=== PATIENT | female | born 1960 | race Caucasian/White ===

== ENCOUNTER 2020-02-04 17:51 | Observation (INO) ==
[2020-02-04 19:16] LABS: Bilirubin,Urine Negative (Negative); Blood, Urine Negative (Negative); Glucose,Urine (UA) Negative (Negative); Ketones,Urine Negative (Negative); Mucus,Urine Many /LPF (Occasional); Nitrite,Urine Negative (Negative); Protein,Urine Negative; Urine Appearance CLOUDY (Clear); Urine Color Amber (Yellow); Urine Specific Gravity 1.016 (1.001-1.035); WBC,Urine 36 /HPF (0-6)
[2020-02-04] MEDS ORDERED: cefTRIAXone 1,000 MG in SODIUM CHLORIDE 0.9% 100 ML IV STA (19:27)
[2020-02-04 19:33] LABS: Basophils # 0.1 10*3/uL (0.0-0.2); Basophils % 1.2 % (0.0-0.8); Eosinophils # 0.4 10*3/uL (0.0-0.87); Eosinophils % 4.3 % (0.00-10.9); Hematocrit 36.4 VOL% (35.7-47.0); Hemoglobin 11.1 GM/DL (12.0-16.0); Immature Granulocytes % 0.3 %; Immature Granulocytes Absolute 0.03 #; Lymphocytes # 2.1 10*3/uL (1.4-4.0); Lymphocytes % 23.7 % (21.3-54.2); Mean Corpuscular HGB Conc 30.5 GM/DL (32-36); Mean Corpuscular Volume 87.5 FL (87-102); Mean Platelet Volume 9.4 FL (9.6-12.0); Neutrophils % 63.5 % (38.7-73.9); Platelet Count 477 T/CUMM (130-400); Red Blood Count 4.16 MC/CUMM (3.8-5.5); Red Cell Distribution Width 13.1 % (9.3-17.3); White Blood Count 8.7 T/CUMM (4-12)
[2020-02-04 19:44] LABS: PT Patient Result 10.9 SECS (9.8-11.9)
[2020-02-04 20:04] LABS: Albumin 3.1 G/DL (3.4-5.0); Bilirubin,Total 0.7 MG/DL (0.2-1.0); Osmolality,Calculated 281.3 MOS/KG (273-304); Total Protein 7.2 G/DL (6.4-8.3)
[2020-02-04] MEDS ORDERED: MORPHINE 4 MG/1 ML VIAL IV STA (20:41)
[2020-02-04] MEDS ORDERED: ONDANSETRON 4 MG/2 ML VIAL IV STA (20:41)
[2020-02-04] MEDS ORDERED: ZALEPLON 5 MG CAPSULE PO PRN (20:49)
[2020-02-04] MEDS ORDERED: NICOTINE 21 MG/24 HR PATCH TRANSDERM PRN (20:49)
[2020-02-04] MEDS ORDERED: hydrALAZINE 20 MG/1 ML VIAL IV PRN (20:49)
[2020-02-04] MEDS ORDERED: ONDANSETRON 4 MG/2 ML VIAL IV PRN (20:49)
[2020-02-04] MEDS ORDERED: GLUCAGON 1 MG VIAL IM PRN (20:49)
[2020-02-04] MEDS ORDERED: DEXTROSE 50% 25 GM/50 ML VIAL IV PRN (20:49)
[2020-02-04] MEDS ORDERED: diphenhydrAMINE CAP 25 MG CAPSULE PO PRN (20:49)
[2020-02-04] MEDS: SODIUM CHLORIDE 0.9% 1,000 ML IV SCH (22:33)
[2020-02-05] MEDS: MORPHINE 4 MG/1 ML VIAL IV PRN ×3 (01:02→21:22)
[2020-02-05] MEDS ORDERED: LORazepam 2 MG/1 ML VIAL IV ONE (03:04)
[2020-02-05] MEDS: ENOXAPARIN 40 MG/0.4 ML SYRINGE SUBCUT SCH (12:30)
[2020-02-05] MEDS: SODIUM CHLORIDE 0.9% 1,000 ML IV SCH (12:32)
[2020-02-05] MEDS ORDERED: TUBERCULIN SKIN TEST 0.1 ML SYRINGE INTRADERM ONE (15:28)
[2020-02-05] MEDS: ACETAMINOPHEN 325 MG TABLET PO PRN (17:56)
[2020-02-05] MEDS: cefTRIAXone 1,000 MG in SYRINGE 1 EACH IV SCH (21:22)
[2020-02-06] MEDS: SODIUM CHLORIDE 0.9% 1,000 ML IV SCH ×2 (00:08→12:58)
[2020-02-06 07:03] LABS: Basophils % 0.6 % (0.0-0.8); Eosinophils # 0.3 10*3/uL (0.0-0.87); Hemoglobin 11.2 GM/DL (12.0-16.0); Immature Granulocytes % 0.4 %; Immature Granulocytes Absolute 0.03 #; Lymphocytes # 1.7 10*3/uL (1.4-4.0); Mean Corpuscular Volume 84.7 FL (87-102); Mean Platelet Volume 9.1 FL (9.6-12.0); Monocytes % 7.4 % (1.7-12.7); Neutrophils % 62.6 % (38.7-73.9); Platelet Count 364 T/CUMM (130-400); Red Blood Count 4.13 MC/CUMM (3.8-5.5); Red Cell Distribution Width 13.2 % (9.3-17.3); White Blood Count 6.9 T/CUMM (4-12)
[2020-02-06 07:28] LABS: Albumin 2.8 G/DL (3.4-5.0); Bilirubin,Total 0.5 MG/DL (0.2-1.0); Calcium 8.9 MG/DL (8.5-10.1); Osmolality,Calculated 279.3 MOS/KG (273-304); Total Protein 6.6 G/DL (6.4-8.3)
[2020-02-06] MEDS: ENOXAPARIN 40 MG/0.4 ML SYRINGE SUBCUT SCH (09:32)
[2020-02-06] MEDS ORDERED: ASPIRIN EC 81 MG TABLET PO SCH (15:30)
[2020-02-06] MEDS: cefTRIAXone 1,000 MG in SYRINGE 1 EACH IV SCH (20:46)
[2020-02-06] MEDS: ASPIRIN EC 81 MG TABLET PO SCH (20:46)
[2020-02-06] MEDS: ACETAMINOPHEN 325 MG TABLET PO PRN (22:50)
[2020-02-07] MEDS: SODIUM CHLORIDE 0.9% 1,000 ML IV SCH ×2 (01:30→16:10)
[2020-02-07] MEDS: amLODIPine 10 MG TABLET PO SCH (09:13)
[2020-02-07] MEDS: BACLOFEN 10 MG TABLET PO SCH ×3 (09:13→20:47)
[2020-02-07] MEDS: METOPROLOL SUCCINATE XL 25 MG TABLET PO SCH (09:13)
[2020-02-07] MEDS: ASPIRIN EC 81 MG TABLET PO SCH (09:13)
[2020-02-07] MEDS: CEFUROXIME 500 MG TABLET PO SCH ×2 (09:13→20:47)
[2020-02-07] MEDS: ENOXAPARIN 40 MG/0.4 ML SYRINGE SUBCUT SCH (09:13)
[2020-02-07 11:31] LABS: Basophils % 0.4 % (0.0-0.8); Eosinophils # 0.3 10*3/uL (0.0-0.87); Eosinophils % 2.7 % (0.00-10.9); Hematocrit 37.1 VOL% (35.7-47.0); Hemoglobin 11.8 GM/DL (12.0-16.0); Immature Granulocytes % 0.5 %; Immature Granulocytes Absolute 0.05 #; Lymphocytes % 10.8 % (21.3-54.2); Mean Corpuscular HGB Conc 31.8 GM/DL (32-36); Mean Corpuscular Volume 84.3 FL (87-102); Mean Platelet Volume 9.3 FL (9.6-12.0); Monocytes % 6.7 % (1.7-12.7); Neutrophils % 78.9 % (38.7-73.9); Platelet Count 389 T/CUMM (130-400); Red Cell Distribution Width 13.1 % (9.3-17.3); White Blood Count 9.1 T/CUMM (4-12)
[2020-02-07 11:56] LABS: Albumin 3.2 G/DL (3.4-5.0); Bilirubin,Total 0.4 MG/DL (0.2-1.0); Calcium 9.2 MG/DL (8.5-10.1); Osmolality,Calculated 276.4 MOS/KG (273-304); Total Protein 7.2 G/DL (6.4-8.3)
[2020-02-07] MEDS ORDERED: ESCITALOPRAM 10 MG TABLET PO SCH (21:00)
[2020-02-07] MEDS ORDERED: ATORVASTATIN 40 MG TABLET PO SCH (21:00)
[2020-02-08] MEDS: SODIUM CHLORIDE 0.9% 1,000 ML IV SCH ×2 (05:35→14:52)
[2020-02-08 06:14] LABS: Basophils # 0.1 10*3/uL (0.0-0.2); Basophils % 0.7 % (0.0-0.8); Eosinophils # 0.3 10*3/uL (0.0-0.87); Eosinophils % 3.7 % (0.00-10.9); Hematocrit 38.7 VOL% (35.7-47.0); Hemoglobin 11.8 GM/DL (12.0-16.0); Immature Granulocytes % 0.2 %; Immature Granulocytes Absolute 0.02 #; Lymphocytes # 1.3 10*3/uL (1.4-4.0); Lymphocytes % 16.6 % (21.3-54.2); Mean Corpuscular HGB Conc 30.5 GM/DL (32-36); Mean Corpuscular Volume 86.8 FL (87-102); Mean Platelet Volume 11.3 FL (9.6-12.0); Monocytes % 7.1 % (1.7-12.7); Neutrophils % 71.7 % (38.7-73.9); Red Blood Count 4.46 MC/CUMM (3.8-5.5); Red Cell Distribution Width 13.2 % (9.3-17.3)
[2020-02-08 06:23] LABS: Platelet Count 294 T/CUMM (130-400)
[2020-02-08 06:33] LABS: Albumin 3.2 G/DL (3.4-5.0); Bilirubin,Total 1.3 MG/DL (0.2-1.0); Calcium 9.1 MG/DL (8.5-10.1); Osmolality,Calculated 277.4 MOS/KG (273-304); Total Protein 7.3 G/DL (6.4-8.3)
[2020-02-08] MEDS: METOPROLOL SUCCINATE XL 25 MG TABLET PO SCH (08:18)
[2020-02-08] MEDS: CEFUROXIME 500 MG TABLET PO SCH (08:18)
[2020-02-08] MEDS: ASPIRIN EC 81 MG TABLET PO SCH (08:18)
[2020-02-08] MEDS: ENOXAPARIN 40 MG/0.4 ML SYRINGE SUBCUT SCH (08:18)
[2020-02-08] MEDS: BACLOFEN 10 MG TABLET PO SCH (08:18)
[2020-02-08] MEDS: amLODIPine 10 MG TABLET PO SCH (08:18)
[2020-02-08] MEDS ORDERED: TUBERCULIN SKIN TEST 0.1 ML SYRINGE INTRADERM ONE (10:18)
[2020-02-08 11:58] VITALS: BP 147/72
== END 2020-02-08 13:35 | disposition home or self-care (01) ==
LOC: EDUNIT# → EDBD → N.ED 17:51 → N.EDINP 17:51 → SUATTDRO 20:49 → SUPCPDRO 20:49 → N.TELEN 02-05 12:05
PROVIDERS: ADMIT Hospitalist; ATTEND Emergency Medicine

== ENCOUNTER 2020-07-28 15:56 | Observation (INO) ==
[2020-07-28] MEDS ORDERED: SODIUM CHLORIDE 0.9% 1,000 ML IV STA (16:32)
[2020-07-28 17:07] LABS: Bilirubin,Urine Negative (Negative); Blood, Urine Negative (Negative); Glucose,Urine (UA) Negative (Negative); Ketones,Urine Negative (Negative); Mucus,Urine Occasional /LPF (Occasional); Nitrite,Urine Negative (Negative); Protein,Urine Negative; RBC,Urine <1 /HPF (0-4); Squamous Epithelial Cell,Urine Occasional /HPF (0-10); Urine Appearance CLEAR (Clear); Urine Color Yellow (Yellow); Urine Specific Gravity 1.012 (1.001-1.035); Urine Urobilinogen < 2.0 EU/DL (0.2-1.0); WBC,Urine <1 /HPF (0-6)
[2020-07-28 17:56] LABS: Basophils # 0.1 10*3/uL (0.0-0.2); Basophils % 0.5 % (0.0-0.8); Eosinophils # 0.2 10*3/uL (0.0-0.87); Eosinophils % 1.5 % (0.00-10.9); Hematocrit 49.2 VOL% (35.7-47.0); Hemoglobin 15.1 GM/DL (12.0-16.0); Immature Granulocytes % 0.6 %; Immature Granulocytes Absolute 0.09 #; Lymphocytes # 1.2 10*3/uL (1.4-4.0); Lymphocytes % 7.6 % (21.3-54.2); Mean Corpuscular HGB Conc 30.7 GM/DL (32-36); Mean Corpuscular Volume 84.2 FL (87-102); Mean Platelet Volume 9.7 FL (9.6-12.0); Monocytes % 5.6 % (1.7-12.7); Neutrophils % 84.2 % (38.7-73.9); Platelet Count 417 T/CUMM (130-400); Red Blood Count 5.84 MC/CUMM (3.8-5.5); White Blood Count 15.8 T/CUMM (4-12)
[2020-07-28 18:29] LABS: Partial Thromboplastin Time 26.3 SECS (23.9-33.8)
[2020-07-28 18:36] LABS: Alanine Aminotransferase 18 U/L (13-56); Albumin 3.5 G/DL (3.4-5.0); Alkaline Phosphatase 150 U/L (45-117); Aspartate Amino Transferase 14 U/L (0-37); Blood Urea Nitrogen 14 MG/DL (7-18); Calcium 9.3 MG/DL (8.5-10.1); Estimated Glom Filtration Rate 111 ML/MIN; Glucose 96 MG/DL (74-106); Osmolality,Calculated 279.4 MOS/KG (273-304); Total Protein 8.4 G/DL (6.4-8.3); Troponin I < 0.015 NG/ML (0.00-0.045)
[2020-07-28 19:21] LABS: Ferritin 33.8 ng/ml (8-252)
[2020-07-28] MEDS ORDERED: cefTRIAXone 1,000 MG in SODIUM CHLORIDE 0.9% 100 ML IV STA (19:55)
[2020-07-28] MEDS ORDERED: GLUCAGON 1 MG VIAL IM PRN (22:23)
[2020-07-28] MEDS ORDERED: DEXTROSE 50% 25 GM/50 ML VIAL IV PRN (22:23)
[2020-07-28] MEDS ORDERED: DOCUSATE SODIUM 100 MG CAPSULE PO PRN (22:28)
[2020-07-28] MEDS ORDERED: ONDANSETRON 4 MG/2 ML VIAL IV PRN (22:28)
[2020-07-28] MEDS ORDERED: ACETAMINOPHEN 325 MG TABLET PO PRN (22:28)
[2020-07-28] MEDS: SODIUM CHLORIDE 0.9% 1,000 ML IV SCH (23:25)
[2020-07-29] MEDS: SODIUM CHLORIDE 0.9% 1,000 ML IV SCH ×2 (07:45→17:37)
[2020-07-29] MEDS: ENOXAPARIN 40 MG/0.4 ML SYRINGE SUBCUT SCH (08:35)
[2020-07-29 08:55] LABS: Basophils # 0.1 10*3/uL (0.0-0.2); Basophils % 0.9 % (0.0-0.8); Eosinophils # 0.3 10*3/uL (0.0-0.87); Eosinophils % 2.7 % (0.00-10.9); Hematocrit 39.9 VOL% (35.7-47.0); Immature Granulocytes % 0.2 %; Immature Granulocytes Absolute 0.02 #; Lymphocytes # 1.8 10*3/uL (1.4-4.0); Mean Corpuscular HGB Conc 31.8 GM/DL (32-36); Mean Corpuscular Volume 81.9 FL (87-102); Mean Platelet Volume 9.6 FL (9.6-12.0); Monocytes % 6.9 % (1.7-12.7); Neutrophils % 69.3 % (38.7-73.9); Platelet Count 375 T/CUMM (130-400); Red Blood Count 4.87 MC/CUMM (3.8-5.5); Red Cell Distribution Width 13.9 % (9.3-17.3)
[2020-07-29 09:01] LABS: Hemoglobin 12.7 GM/DL (12.0-16.0); White Blood Count 9.1 T/CUMM (4-12)
[2020-07-29 09:07] LABS: Calcium 8.6 MG/DL (8.5-10.1); Osmolality,Calculated 279.3 MOS/KG (273-304)
[2020-07-29] MEDS: ATORVASTATIN 40 MG TABLET PO SCH (20:41)
[2020-07-30 07:15] LABS: Basophils # 0.1 10*3/uL (0.0-0.2); Eosinophils # 0.3 10*3/uL (0.0-0.87); Eosinophils % 3.9 % (0.00-10.9); Hematocrit 37.9 VOL% (35.7-47.0); Hemoglobin 12.1 GM/DL (12.0-16.0); Immature Granulocytes % 0.3 %; Immature Granulocytes Absolute 0.02 #; Lymphocytes # 1.7 10*3/uL (1.4-4.0); Lymphocytes % 24.9 % (21.3-54.2); Mean Corpuscular HGB Conc 31.9 GM/DL (32-36); Mean Corpuscular Volume 82.2 FL (87-102); Mean Platelet Volume 11.3 FL (9.6-12.0); Monocytes % 9.6 % (1.7-12.7); NRBC # 0.03 10*3/uL; Neutrophils % 60.3 % (38.7-73.9); Red Blood Count 4.61 MC/CUMM (3.8-5.5); Red Cell Distribution Width 13.9 % (9.3-17.3); White Blood Count 6.9 T/CUMM (4-12)
[2020-07-30 07:17] LABS: Platelet Count 154 T/CUMM (130-400)
[2020-07-30 07:28] LABS: Calcium 8.5 MG/DL (8.5-10.1); Osmolality,Calculated 281.1 MOS/KG (273-304)
[2020-07-30] MEDS: ESCITALOPRAM 10 MG TABLET PO SCH (09:49)
[2020-07-30] MEDS: amLODIPine 10 MG TABLET PO SCH (09:49)
[2020-07-30] MEDS: ASPIRIN EC 81 MG TABLET PO SCH (09:49)
[2020-07-30] MEDS: METOPROLOL SUCCINATE XL 25 MG TABLET PO SCH (09:49)
[2020-07-30] MEDS: ENOXAPARIN 40 MG/0.4 ML SYRINGE SUBCUT SCH (09:49)
[2020-07-30] MEDS: SODIUM CHLORIDE 0.9% 1,000 ML IV SCH (09:49)
[2020-07-30] MEDS: ATORVASTATIN 40 MG TABLET PO SCH (20:41)
[2020-07-31] MEDS: SODIUM CHLORIDE 0.9% 1,000 ML IV SCH (01:59)
[2020-07-31] MEDS ORDERED: NICOTINE 21 MG/24 HR PATCH TRANSDERM PRN (02:20)
[2020-07-31] MEDS: METOPROLOL SUCCINATE XL 25 MG TABLET PO SCH (09:00)
[2020-07-31] MEDS: amLODIPine 10 MG TABLET PO SCH (09:00)
[2020-07-31] MEDS: ASPIRIN EC 81 MG TABLET PO SCH (09:00)
[2020-07-31] MEDS: ESCITALOPRAM 10 MG TABLET PO SCH (09:00)
[2020-07-31] MEDS: ENOXAPARIN 40 MG/0.4 ML SYRINGE SUBCUT SCH (09:01)
[2020-07-31] MEDS: ATORVASTATIN 40 MG TABLET PO SCH (21:45)
[2020-08-01] MEDS: ENOXAPARIN 40 MG/0.4 ML SYRINGE SUBCUT SCH (09:05)
[2020-08-01] MEDS: ASPIRIN EC 81 MG TABLET PO SCH (09:05)
[2020-08-01] MEDS: amLODIPine 10 MG TABLET PO SCH (09:05)
[2020-08-01] MEDS: ESCITALOPRAM 10 MG TABLET PO SCH (09:05)
[2020-08-01] MEDS: METOPROLOL SUCCINATE XL 25 MG TABLET PO SCH (09:05)
[2020-08-01] MEDS: SODIUM CHLORIDE 0.9% 1,000 ML IV SCH ×2 (09:09→09:10)
[2020-08-01 13:29] VITALS: BP 124/60
== END 2020-08-01 14:00 | disposition home health service (06) ==
LOC: EDBD → EDUNIT# → N.ED 15:56 → N.EDINP 15:56 → SUATTDRO 21:27 → N.3E 22:06
PROVIDERS: ADMIT Emergency Medicine; ATTEND Internal Medicine Geriatric Medicine

== ENCOUNTER 2021-06-03 14:01 | Inpatient (IN) ==
[2021-06-03 15:25] LABS: Bacteria,Urine Occasional /HPF (Few); Bilirubin,Urine Negative (Negative); Blood, Urine Negative (Negative); Glucose,Urine (UA) Negative (Negative); Hyaline Casts,Urine 1 /LPF (0-3); Ketones,Urine Negative (Negative); Mucus,Urine Occasional /LPF (Occasional); Nitrite,Urine Positive (Negative); Protein,Urine 30 MG/DL; RBC,Urine 1 /HPF (0-4); Squamous Epithelial Cell,Urine Occasional /HPF (0-10); Urine Appearance CLEAR (Clear); Urine Color Amber (Yellow); Urine Specific Gravity 1.017 (1.001-1.035)
[2021-06-03] MEDS ORDERED: cefTRIAXone 1,000 MG in SODIUM CHLORIDE 0.9% 100 ML IV STA (16:37)
[2021-06-03 16:39] LABS: Albumin 3.5 G/DL (3.4-5.0); Bilirubin,Total 0.4 MG/DL (0.20-1.00); Osmolality,Calculated 274.7 MOS/KG (273-304); Potassium 4.3 MMOL/L (3.5-5.1); Total Protein 8.1 G/DL (6.4-8.2)
[2021-06-03] MEDS ORDERED: cefTRIAXone 1,000 MG VIAL IM STA (16:42)
[2021-06-03] MEDS ORDERED: LIDOCAINE 1% 50 ML VIAL ONE (16:43)
[2021-06-03 16:50] LABS: Basophils # 0.1 10*3/uL (0.0-0.2); Basophils % 0.7 % (0.0-0.8); Eosinophils # 0.1 10*3/uL (0.0-0.87); Eosinophils % 0.5 % (0.00-10.9); Hematocrit 46.6 VOL% (35.7-47.0); Hemoglobin 14.2 GM/DL (12.0-16.0); Immature Granulocytes % 0.5 %; Immature Granulocytes Absolute 0.09 #; Lymphocytes # 1.6 10*3/uL (1.4-4.0); Lymphocytes % 9.9 % (21.3-54.2); Mean Corpuscular HGB Conc 30.5 GM/DL (32-36); Mean Corpuscular Volume 84.7 FL (87-102); Mean Platelet Volume 10.5 FL (9.6-12.0); Monocytes % 4.8 % (1.7-12.7); Neutrophils % 83.6 % (38.7-73.9); Platelet Count 433 T/CUMM (130-400); Red Cell Distribution Width 14.8 % (9.3-17.3); White Blood Count 16.5 T/CUMM (4-12)
[2021-06-03] MEDS ORDERED: ONDANSETRON 4 MG/2 ML VIAL IV PRN (17:28)
[2021-06-03] MEDS: LACTATED RINGERS 1,000 ML IV SCH (20:10)
[2021-06-03 20:27] LABS: Thyroid Stimulating Hormone 1.34 uIU/ml (0.358-3.74)
[2021-06-03] MEDS: ENOXAPARIN 40 MG/0.4 ML SYRINGE SUBCUT SCH (20:48)
[2021-06-03] MEDS: ATORVASTATIN 40 MG TABLET PO SCH (20:48)
[2021-06-03] MEDS: MIRTAZAPINE 15 MG TABLET PO SCH (20:48)
[2021-06-03] MEDS: BACLOFEN 10 MG TABLET PO SCH (20:48)
[2021-06-04] MEDS: LACTATED RINGERS 1,000 ML IV SCH ×3 (03:12→18:43)
[2021-06-04 05:27] LABS: Basophils # 0.1 10*3/uL (0.0-0.2); Basophils % 0.6 % (0.0-0.8); Eosinophils # 0.2 10*3/uL (0.0-0.87); Eosinophils % 1.7 % (0.00-10.9); Hematocrit 41.1 VOL% (35.7-47.0); Hemoglobin 12.4 GM/DL (12.0-16.0); Immature Granulocytes % 0.5 %; Immature Granulocytes Absolute 0.06 #; Lymphocytes # 2.3 10*3/uL (1.4-4.0); Lymphocytes % 20.4 % (21.3-54.2); Mean Corpuscular HGB Conc 30.2 GM/DL (32-36); Mean Corpuscular Volume 85.3 FL (87-102); Mean Platelet Volume 10.2 FL (9.6-12.0); Monocytes % 6.5 % (1.7-12.7); Neutrophils % 70.3 % (38.7-73.9); Platelet Count 373 T/CUMM (130-400); Red Blood Count 4.82 MC/CUMM (3.8-5.5); Red Cell Distribution Width 14.9 % (9.3-17.3); White Blood Count 11.3 T/CUMM (4-12)
[2021-06-04 05:49] LABS: Albumin 2.9 G/DL (3.4-5.0); Bilirubin,Total 0.5 MG/DL (0.20-1.00); Calcium 8.6 MG/DL (8.5-10.1); Osmolality,Calculated 281.1 MOS/KG (273-304); Potassium 3.4 MMOL/L (3.5-5.1); Total Protein 6.8 G/DL (6.4-8.2)
[2021-06-04] MEDS: amLODIPine 10 MG TABLET PO SCH (09:35)
[2021-06-04] MEDS: ESCITALOPRAM 10 MG TABLET PO SCH (09:35)
[2021-06-04] MEDS: METOPROLOL SUCCINATE XL 25 MG TABLET PO SCH (09:35)
[2021-06-04] MEDS: ASPIRIN EC 81 MG TABLET PO SCH (09:36)
[2021-06-04] MEDS: cefTRIAXone 2,000 MG in SODIUM CHLORIDE 0.9% 100 ML IV SCH (16:17)
[2021-06-04] MEDS: ENOXAPARIN 40 MG/0.4 ML SYRINGE SUBCUT SCH (18:44)
[2021-06-04] MEDS: MIRTAZAPINE 15 MG TABLET PO SCH (20:52)
[2021-06-04] MEDS: BACLOFEN 10 MG TABLET PO SCH (20:52)
[2021-06-04] MEDS: ATORVASTATIN 40 MG TABLET PO SCH (20:52)
[2021-06-05] MEDS: LACTATED RINGERS 1,000 ML IV SCH ×2 (02:08→15:46)
[2021-06-05 04:52] LABS: Basophils # 0.1 10*3/uL (0.0-0.2); Basophils % 0.6 % (0.0-0.8); Eosinophils # 0.2 10*3/uL (0.0-0.87); Eosinophils % 1.7 % (0.00-10.9); Hematocrit 45.3 VOL% (35.7-47.0); Hemoglobin 13.8 GM/DL (12.0-16.0); Immature Granulocytes % 0.5 %; Immature Granulocytes Absolute 0.05 #; Lymphocytes # 2.3 10*3/uL (1.4-4.0); Lymphocytes % 20.8 % (21.3-54.2); Mean Corpuscular HGB Conc 30.5 GM/DL (32-36); Mean Platelet Volume 10.2 FL (9.6-12.0); Monocytes % 7.2 % (1.7-12.7); Neutrophils % 69.2 % (38.7-73.9); Platelet Count 402 T/CUMM (130-400); Red Blood Count 5.39 MC/CUMM (3.8-5.5); Red Cell Distribution Width 14.7 % (9.3-17.3); White Blood Count 11.1 T/CUMM (4-12)
[2021-06-05 05:22] LABS: Bilirubin,Total 1.4 MG/DL (0.20-1.00); Calcium 8.9 MG/DL (8.5-10.1); Osmolality,Calculated 278.3 MOS/KG (273-304); Potassium 3.4 MMOL/L (3.5-5.1); Total Protein 7.4 G/DL (6.4-8.2)
[2021-06-05] MEDS: METOPROLOL SUCCINATE XL 25 MG TABLET PO SCH (10:00)
[2021-06-05] MEDS: ESCITALOPRAM 10 MG TABLET PO SCH (10:00)
[2021-06-05] MEDS: amLODIPine 10 MG TABLET PO SCH (10:00)
[2021-06-05] MEDS: ASPIRIN EC 81 MG TABLET PO SCH (10:00)
[2021-06-05] MEDS: cefTRIAXone 2,000 MG in SODIUM CHLORIDE 0.9% 100 ML IV SCH (10:19)
[2021-06-05] MEDS ORDERED: FUROSEMIDE 20 MG/2 ML VIAL IV ONE (12:00)
[2021-06-05] MEDS: ENOXAPARIN 40 MG/0.4 ML SYRINGE SUBCUT SCH (18:27)
[2021-06-05] MEDS: BACLOFEN 10 MG TABLET PO SCH (21:16)
[2021-06-05] MEDS: ATORVASTATIN 40 MG TABLET PO SCH (21:18)
[2021-06-05] MEDS: MIRTAZAPINE 15 MG TABLET PO SCH (21:18)
[2021-06-06 06:22] LABS: Basophils # 0.1 10*3/uL (0.0-0.2); Basophils % 0.6 % (0.0-0.8); Eosinophils # 0.2 10*3/uL (0.0-0.87); Eosinophils % 2.1 % (0.00-10.9); Hemoglobin 14.7 GM/DL (12.0-16.0); Immature Granulocytes % 0.3 %; Immature Granulocytes Absolute 0.03 #; Lymphocytes # 2.3 10*3/uL (1.4-4.0); Lymphocytes % 20.4 % (21.3-54.2); Mean Corpuscular HGB Conc 31.3 GM/DL (32-36); Mean Corpuscular Volume 84.4 FL (87-102); Neutrophils % 69.6 % (38.7-73.9); Platelet Count 434 T/CUMM (130-400); Red Blood Count 5.57 MC/CUMM (3.8-5.5); Red Cell Distribution Width 14.6 % (9.3-17.3); White Blood Count 11.3 T/CUMM (4-12)
[2021-06-06 06:46] LABS: Albumin 3.3 G/DL (3.4-5.0); Calcium 9.2 MG/DL (8.5-10.1); Osmolality,Calculated 279.3 MOS/KG (273-304); Potassium 3.2 MMOL/L (3.5-5.1)
[2021-06-06] MEDS: amLODIPine 10 MG TABLET PO SCH (09:54)
[2021-06-06] MEDS: ASPIRIN EC 81 MG TABLET PO SCH (09:54)
[2021-06-06] MEDS: METOPROLOL SUCCINATE XL 25 MG TABLET PO SCH (09:55)
[2021-06-06] MEDS: cefTRIAXone 2,000 MG in SODIUM CHLORIDE 0.9% 100 ML IV SCH (09:55)
[2021-06-06] MEDS: ESCITALOPRAM 10 MG TABLET PO SCH (09:55)
[2021-06-06] MEDS ORDERED: TUBERCULIN SKIN TEST 0.1 ML SYRINGE INTRADERM ONE (11:00)
[2021-06-06] MEDS: ENOXAPARIN 40 MG/0.4 ML SYRINGE SUBCUT SCH (17:07)
[2021-06-06] MEDS: MIRTAZAPINE 15 MG TABLET PO SCH (20:58)
[2021-06-06] MEDS: ATORVASTATIN 40 MG TABLET PO SCH (20:58)
[2021-06-06] MEDS: BACLOFEN 10 MG TABLET PO SCH (20:58)
[2021-06-07] MEDS: ASPIRIN EC 81 MG TABLET PO SCH (08:01)
[2021-06-07] MEDS: ESCITALOPRAM 10 MG TABLET PO SCH (08:02)
[2021-06-07] MEDS: amLODIPine 10 MG TABLET PO SCH (08:02)
[2021-06-07] MEDS: METOPROLOL SUCCINATE XL 25 MG TABLET PO SCH (08:02)
[2021-06-07] MEDS: cefTRIAXone 2,000 MG in SODIUM CHLORIDE 0.9% 100 ML IV SCH (08:07)
[2021-06-07] MEDS ORDERED: POTASSIUM CHLORIDE 20 MEQ PACK PO ONE (11:00)
[2021-06-07] MEDS: ATORVASTATIN 40 MG TABLET PO SCH (20:56)
[2021-06-07] MEDS: BACLOFEN 10 MG TABLET PO SCH (20:56)
[2021-06-07] MEDS: MIRTAZAPINE 15 MG TABLET PO SCH (20:56)
[2021-06-07] MEDS: ENOXAPARIN 40 MG/0.4 ML SYRINGE SUBCUT SCH (20:57)
[2021-06-08 05:43] LABS: Basophils # 0.1 10*3/uL (0.0-0.2); Basophils % 0.7 % (0.0-0.8); Eosinophils # 0.3 10*3/uL (0.0-0.87); Eosinophils % 2.5 % (0.00-10.9); Hematocrit 47.1 VOL% (35.7-47.0); Hemoglobin 14.4 GM/DL (12.0-16.0); Immature Granulocytes % 0.4 %; Immature Granulocytes Absolute 0.04 #; Lymphocytes # 2.3 10*3/uL (1.4-4.0); Lymphocytes % 23.3 % (21.3-54.2); Mean Corpuscular HGB Conc 30.6 GM/DL (32-36); Mean Corpuscular Volume 85.6 FL (87-102); Mean Platelet Volume 10.2 FL (9.6-12.0); Monocytes % 7.5 % (1.7-12.7); Neutrophils % 65.6 % (38.7-73.9); Platelet Count 383 T/CUMM (130-400); Red Cell Distribution Width 14.8 % (9.3-17.3); White Blood Count 9.9 T/CUMM (4-12)
[2021-06-08 05:56] LABS: Calcium 8.9 MG/DL (8.5-10.1); Potassium 3.3 MMOL/L (3.5-5.1)
[2021-06-08 06:22] LABS: Hypochromasia 1+; Platelet Estimate Normal
[2021-06-08] MEDS: ASPIRIN EC 81 MG TABLET PO SCH (08:41)
[2021-06-08] MEDS: ESCITALOPRAM 10 MG TABLET PO SCH (08:41)
[2021-06-08] MEDS: cefTRIAXone 2,000 MG in SODIUM CHLORIDE 0.9% 100 ML IV SCH (08:42)
[2021-06-08] MEDS: METOPROLOL SUCCINATE XL 25 MG TABLET PO SCH (08:42)
[2021-06-08] MEDS: amLODIPine 10 MG TABLET PO SCH (08:42)
[2021-06-08] MEDS: ATORVASTATIN 40 MG TABLET PO SCH (22:16)
[2021-06-08] MEDS: MIRTAZAPINE 15 MG TABLET PO SCH (22:16)
[2021-06-08] MEDS: BACLOFEN 10 MG TABLET PO SCH (22:16)
[2021-06-08] MEDS: ENOXAPARIN 40 MG/0.4 ML SYRINGE SUBCUT SCH (22:18)
[2021-06-09] MEDS: cefTRIAXone 2,000 MG in SODIUM CHLORIDE 0.9% 100 ML IV SCH (09:36)
[2021-06-09] MEDS: ESCITALOPRAM 10 MG TABLET PO SCH (09:36)
[2021-06-09] MEDS: amLODIPine 10 MG TABLET PO SCH (09:36)
[2021-06-09] MEDS: ASPIRIN EC 81 MG TABLET PO SCH (09:36)
[2021-06-09] MEDS: METOPROLOL SUCCINATE XL 25 MG TABLET PO SCH (09:45)
[2021-06-09] MEDS: ATORVASTATIN 40 MG TABLET PO SCH (20:48)
[2021-06-09] MEDS: MIRTAZAPINE 15 MG TABLET PO SCH (20:48)
[2021-06-09] MEDS: ENOXAPARIN 40 MG/0.4 ML SYRINGE SUBCUT SCH (20:48)
[2021-06-09] MEDS: BACLOFEN 10 MG TABLET PO SCH (20:48)
[2021-06-10] MEDS: cefTRIAXone 2,000 MG in SODIUM CHLORIDE 0.9% 100 ML IV SCH (09:11)
[2021-06-10] MEDS: amLODIPine 10 MG TABLET PO SCH (09:12)
[2021-06-10] MEDS: ESCITALOPRAM 10 MG TABLET PO SCH (09:12)
[2021-06-10] MEDS: ASPIRIN EC 81 MG TABLET PO SCH (09:12)
[2021-06-10] MEDS: METOPROLOL SUCCINATE XL 25 MG TABLET PO SCH (09:12)
[2021-06-10] MEDS: MIRTAZAPINE 15 MG TABLET PO SCH (22:20)
[2021-06-10] MEDS: BACLOFEN 10 MG TABLET PO SCH (22:20)
[2021-06-10] MEDS: ENOXAPARIN 40 MG/0.4 ML SYRINGE SUBCUT SCH (22:20)
[2021-06-10] MEDS: ATORVASTATIN 40 MG TABLET PO SCH (22:20)
[2021-06-11] MEDS: METOPROLOL SUCCINATE XL 25 MG TABLET PO SCH (08:12)
[2021-06-11] MEDS: ESCITALOPRAM 10 MG TABLET PO SCH (08:12)
[2021-06-11] MEDS: ASPIRIN EC 81 MG TABLET PO SCH (08:12)
[2021-06-11] MEDS: amLODIPine 10 MG TABLET PO SCH (08:13)
[2021-06-11] MEDS: BACLOFEN 10 MG TABLET PO SCH (20:53)
[2021-06-11] MEDS: MIRTAZAPINE 15 MG TABLET PO SCH (20:53)
[2021-06-11] MEDS: ATORVASTATIN 40 MG TABLET PO SCH (20:54)
[2021-06-11] MEDS: ENOXAPARIN 40 MG/0.4 ML SYRINGE SUBCUT SCH (20:56)
[2021-06-12] MEDS: amLODIPine 10 MG TABLET PO SCH (09:05)
[2021-06-12] MEDS: ASPIRIN EC 81 MG TABLET PO SCH (09:08)
[2021-06-12] MEDS: ESCITALOPRAM 10 MG TABLET PO SCH (09:08)
[2021-06-12] MEDS: METOPROLOL SUCCINATE XL 25 MG TABLET PO SCH (09:09)
[2021-06-12] MEDS: ATORVASTATIN 40 MG TABLET PO SCH (21:19)
[2021-06-12] MEDS: MIRTAZAPINE 15 MG TABLET PO SCH (21:19)
[2021-06-12] MEDS: ENOXAPARIN 40 MG/0.4 ML SYRINGE SUBCUT SCH (21:21)
[2021-06-12] MEDS: BACLOFEN 10 MG TABLET PO SCH (21:21)
[2021-06-13] MEDS: ASPIRIN EC 81 MG TABLET PO SCH (08:47)
[2021-06-13] MEDS: ESCITALOPRAM 10 MG TABLET PO SCH (08:47)
[2021-06-13] MEDS: amLODIPine 10 MG TABLET PO SCH (08:47)
[2021-06-13] MEDS: METOPROLOL SUCCINATE XL 25 MG TABLET PO SCH (08:47)
[2021-06-13] MEDS: ACETAMINOPHEN 325 MG TABLET PO PRN (21:35)
[2021-06-13] MEDS: BACLOFEN 10 MG TABLET PO SCH (21:36)
[2021-06-13] MEDS: ENOXAPARIN 40 MG/0.4 ML SYRINGE SUBCUT SCH (21:36)
[2021-06-13] MEDS: MIRTAZAPINE 15 MG TABLET PO SCH (21:36)
[2021-06-13] MEDS: ATORVASTATIN 40 MG TABLET PO SCH (21:36)
[2021-06-14] MEDS: ESCITALOPRAM 10 MG TABLET PO SCH (08:21)
[2021-06-14] MEDS: ASPIRIN EC 81 MG TABLET PO SCH (08:21)
[2021-06-14] MEDS: METOPROLOL SUCCINATE XL 25 MG TABLET PO SCH (08:22)
[2021-06-14] MEDS: amLODIPine 10 MG TABLET PO SCH (08:22)
[2021-06-14] MEDS: ACETAMINOPHEN 325 MG TABLET PO PRN (21:49)
[2021-06-14] MEDS: BACLOFEN 10 MG TABLET PO SCH (21:49)
[2021-06-14] MEDS: ENOXAPARIN 40 MG/0.4 ML SYRINGE SUBCUT SCH (21:49)
[2021-06-14] MEDS: MIRTAZAPINE 15 MG TABLET PO SCH (21:49)
[2021-06-14] MEDS: ATORVASTATIN 40 MG TABLET PO SCH (21:50)
[2021-06-15] MEDS: METOPROLOL SUCCINATE XL 25 MG TABLET PO SCH (08:37)
[2021-06-15] MEDS: ESCITALOPRAM 10 MG TABLET PO SCH (08:38)
[2021-06-15] MEDS: ASPIRIN EC 81 MG TABLET PO SCH (08:39)
[2021-06-15] MEDS: amLODIPine 10 MG TABLET PO SCH (08:39)
[2021-06-15] MEDS: ENOXAPARIN 40 MG/0.4 ML SYRINGE SUBCUT SCH (21:00)
[2021-06-15] MEDS: MIRTAZAPINE 15 MG TABLET PO SCH (21:00)
[2021-06-15] MEDS: ATORVASTATIN 40 MG TABLET PO SCH (21:00)
[2021-06-15] MEDS: BACLOFEN 10 MG TABLET PO SCH (21:00)
[2021-06-15] MEDS: ACETAMINOPHEN 325 MG TABLET PO PRN (21:00)
[2021-06-16] MEDS: amLODIPine 10 MG TABLET PO SCH (08:22)
[2021-06-16] MEDS: ASPIRIN EC 81 MG TABLET PO SCH (08:22)
[2021-06-16] MEDS: ESCITALOPRAM 10 MG TABLET PO SCH (08:23)
[2021-06-16] MEDS: METOPROLOL SUCCINATE XL 25 MG TABLET PO SCH (08:23)
[2021-06-16] MEDS: BACLOFEN 10 MG TABLET PO SCH (20:43)
[2021-06-16] MEDS: ENOXAPARIN 40 MG/0.4 ML SYRINGE SUBCUT SCH (20:43)
[2021-06-16] MEDS: MIRTAZAPINE 15 MG TABLET PO SCH (20:43)
[2021-06-16] MEDS: ATORVASTATIN 40 MG TABLET PO SCH (20:43)
[2021-06-17 06:33] LABS: Osmolality,Calculated 282.3 MOS/KG (273-304); Potassium 3.6 MMOL/L (3.5-5.1)
[2021-06-17 06:40] LABS: Basophils # 0.1 10*3/uL (0.0-0.2); Basophils % 0.8 % (0.0-0.8); Eosinophils # 0.2 10*3/uL (0.0-0.87); Eosinophils % 2.6 % (0.00-10.9); Hematocrit 45.8 VOL% (35.7-47.0); Hemoglobin 13.8 GM/DL (12.0-16.0); Immature Granulocytes % 0.3 %; Immature Granulocytes Absolute 0.03 #; Lymphocytes # 2.3 10*3/uL (1.4-4.0); Lymphocytes % 25.1 % (21.3-54.2); Mean Corpuscular HGB Conc 30.1 GM/DL (32-36); Mean Corpuscular Volume 85.3 FL (87-102); Mean Platelet Volume 10.7 FL (9.6-12.0); Neutrophils % 63.2 % (38.7-73.9); Platelet Count 340 T/CUMM (130-400); Red Blood Count 5.37 MC/CUMM (3.8-5.5); Red Cell Distribution Width 14.6 % (9.3-17.3); White Blood Count 9.3 T/CUMM (4-12)
[2021-06-17] MEDS: ESCITALOPRAM 10 MG TABLET PO SCH (08:31)
[2021-06-17] MEDS: ASPIRIN EC 81 MG TABLET PO SCH (08:31)
[2021-06-17] MEDS: amLODIPine 10 MG TABLET PO SCH (08:31)
[2021-06-17] MEDS: METOPROLOL SUCCINATE XL 25 MG TABLET PO SCH (08:32)
[2021-06-17] MEDS: BACLOFEN 10 MG TABLET PO SCH (20:17)
[2021-06-17] MEDS: ENOXAPARIN 40 MG/0.4 ML SYRINGE SUBCUT SCH (20:17)
[2021-06-17] MEDS: MIRTAZAPINE 15 MG TABLET PO SCH (20:17)
[2021-06-17] MEDS: ATORVASTATIN 40 MG TABLET PO SCH (20:17)
[2021-06-18] MEDS: ESCITALOPRAM 10 MG TABLET PO SCH (09:24)
[2021-06-18] MEDS: ASPIRIN EC 81 MG TABLET PO SCH (09:25)
[2021-06-18] MEDS: METOPROLOL SUCCINATE XL 25 MG TABLET PO SCH (09:25)
[2021-06-18] MEDS: amLODIPine 10 MG TABLET PO SCH (09:35)
[2021-06-18] MEDS: MIRTAZAPINE 15 MG TABLET PO SCH (22:48)
[2021-06-18] MEDS: ATORVASTATIN 40 MG TABLET PO SCH (22:48)
[2021-06-18] MEDS: BACLOFEN 10 MG TABLET PO SCH (22:48)
[2021-06-18] MEDS: ENOXAPARIN 40 MG/0.4 ML SYRINGE SUBCUT SCH (22:52)
[2021-06-19 07:20] LABS: Calcium 8.9 MG/DL (8.5-10.1); Osmolality,Calculated 280.3 MOS/KG (273-304); Potassium 3.7 MMOL/L (3.5-5.1)
[2021-06-19 07:57] LABS: Basophils # 0.1 10*3/uL (0.0-0.2); Eosinophils # 0.2 10*3/uL (0.0-0.87); Eosinophils % 2.6 % (0.00-10.9); Hematocrit 45.5 VOL% (35.7-47.0); Hemoglobin 14.1 GM/DL (12.0-16.0); Immature Granulocytes % 0.4 %; Immature Granulocytes Absolute 0.03 #; Lymphocytes # 2.3 10*3/uL (1.4-4.0); Lymphocytes % 28.7 % (21.3-54.2); Mean Corpuscular Volume 85.4 FL (87-102); Mean Platelet Volume 11.2 FL (9.6-12.0); Monocytes % 8.9 % (1.7-12.7); Neutrophils % 58.4 % (38.7-73.9); Platelet Count 233 T/CUMM (130-400); Red Blood Count 5.33 MC/CUMM (3.8-5.5); Red Cell Distribution Width 14.6 % (9.3-17.3)
[2021-06-19] MEDS: amLODIPine 10 MG TABLET PO SCH (09:38)
[2021-06-19] MEDS: ASPIRIN EC 81 MG TABLET PO SCH (09:38)
[2021-06-19] MEDS: ESCITALOPRAM 10 MG TABLET PO SCH (09:38)
[2021-06-19] MEDS: METOPROLOL SUCCINATE XL 25 MG TABLET PO SCH (09:40)
[2021-06-19] MEDS: BACLOFEN 10 MG TABLET PO SCH (21:30)
[2021-06-19] MEDS: MIRTAZAPINE 15 MG TABLET PO SCH (21:30)
[2021-06-19] MEDS: ENOXAPARIN 40 MG/0.4 ML SYRINGE SUBCUT SCH (21:31)
[2021-06-19] MEDS: ATORVASTATIN 40 MG TABLET PO SCH (21:31)
[2021-06-20] MEDS: ESCITALOPRAM 10 MG TABLET PO SCH (08:00)
[2021-06-20] MEDS: METOPROLOL SUCCINATE XL 25 MG TABLET PO SCH (08:00)
[2021-06-20] MEDS: amLODIPine 10 MG TABLET PO SCH (08:00)
[2021-06-20] MEDS: ASPIRIN EC 81 MG TABLET PO SCH (08:00)
[2021-06-20] MEDS: MIRTAZAPINE 15 MG TABLET PO SCH (21:14)
[2021-06-20] MEDS: BACLOFEN 10 MG TABLET PO SCH (21:14)
[2021-06-20] MEDS: ATORVASTATIN 40 MG TABLET PO SCH (21:14)
[2021-06-20] MEDS: ENOXAPARIN 40 MG/0.4 ML SYRINGE SUBCUT SCH (21:15)
[2021-06-21] MEDS: ESCITALOPRAM 10 MG TABLET PO SCH (08:00)
[2021-06-21] MEDS: METOPROLOL SUCCINATE XL 25 MG TABLET PO SCH (08:00)
[2021-06-21] MEDS: amLODIPine 10 MG TABLET PO SCH (08:01)
[2021-06-21] MEDS: ASPIRIN EC 81 MG TABLET PO SCH (08:01)
[2021-06-21] MEDS: BACLOFEN 10 MG TABLET PO SCH (22:17)
[2021-06-21] MEDS: MIRTAZAPINE 15 MG TABLET PO SCH (22:17)
[2021-06-21] MEDS: ATORVASTATIN 40 MG TABLET PO SCH (22:17)
[2021-06-21] MEDS: ENOXAPARIN 40 MG/0.4 ML SYRINGE SUBCUT SCH (22:18)
[2021-06-22] MEDS: METOPROLOL SUCCINATE XL 25 MG TABLET PO SCH (09:53)
[2021-06-22] MEDS: amLODIPine 10 MG TABLET PO SCH (09:53)
[2021-06-22] MEDS: ESCITALOPRAM 10 MG TABLET PO SCH (09:53)
[2021-06-22] MEDS: ASPIRIN EC 81 MG TABLET PO SCH (09:53)
[2021-06-22] MEDS ORDERED: MINERAL OIL ENEMA 133 ML BOTTLE RECTAL ONE (20:09)
[2021-06-22] MEDS: BACLOFEN 10 MG TABLET PO SCH (22:18)
[2021-06-22] MEDS: MIRTAZAPINE 15 MG TABLET PO SCH (22:18)
[2021-06-22] MEDS: ATORVASTATIN 40 MG TABLET PO SCH (22:19)
[2021-06-22] MEDS: ENOXAPARIN 40 MG/0.4 ML SYRINGE SUBCUT SCH (22:21)
[2021-06-23] MEDS ORDERED: POLYETHYLENE GLYCOL POWDER 255 GM BOTTLE PO ONE (00:46)
[2021-06-23] MEDS ORDERED: POLYETHYLENE GLYCOL POWDER 17 GM PACK PO SCH (09:00)
[2021-06-23] MEDS: amLODIPine 10 MG TABLET PO SCH (09:03)
[2021-06-23] MEDS: METOPROLOL SUCCINATE XL 25 MG TABLET PO SCH (09:03)
[2021-06-23] MEDS: ASPIRIN EC 81 MG TABLET PO SCH (09:03)
[2021-06-23] MEDS: ESCITALOPRAM 10 MG TABLET PO SCH (09:03)
[2021-06-23 12:19] VITALS: BP 116/77
== END 2021-06-23 13:28 | DRG 690 ==
LOC: N.ED 14:01 → N.EDINP 17:25 → SUATTDRO 17:25 → N.5E 19:39
PROVIDERS: ADMIT Internal Medicine; ATTEND Internal Medicine

== ENCOUNTER 2022-04-22 17:21 | Observation (INO) ==
[2022-04-22 21:18] LABS: Bacteria Wet Mount Few /HPF; Clue Cells None Seen /HPF (None Seen); Epithelial Cell Wet Mount Few /HPF (Few/HPF); RBC Wet Mount Rare /HPF; Trichomonas Wet Mount None Seen /HPF (None Seen); WBC Wet Mount Rare /HPF; Yeast Wet Mount None Seen /HPF (None Seen)
[2022-04-22 21:24] LABS: Albumin 3.6 G/DL (3.4-5.0); Bilirubin,Total 0.5 MG/DL (0.20-1.00); Calcium 9.2 MG/DL (8.5-10.1); Potassium 4.2 MMOL/L (3.5-5.1); Total Protein 7.6 G/DL (6.4-8.2)
[2022-04-22 21:29] LABS: Amorphous Crystals,Urine Occasional /HPF (Few); Bacteria,Urine Occasional /HPF (Few); Mucus,Urine Occasional /LPF (Occasional); RBC,Urine 6 /HPF (0-4); Squamous Epithelial Cell,Urine Occasional /HPF (0-10)
[2022-04-22 21:30] LABS: Bilirubin,Urine Negative (Negative); Blood, Urine Negative (Negative); Glucose,Urine (UA) Negative (Negative); Ketones,Urine Negative (Negative); Nitrite,Urine Negative (Negative); Protein,Urine Negative (Negative); Urine Appearance Clear (Clear); Urine Color Yellow (Yellow); Urine Specific Gravity 1.025 (1.001-1.035); Urine Urobilinogen 0.2 eU/dL (<2.0)
[2022-04-22 23:14] LABS: Basophils # 0.1 10*3/uL (0.0-0.2); Basophils % 0.6 % (0.0-0.8); Eosinophils # 0.2 10*3/uL (0.0-0.87); Eosinophils % 1.4 % (0.00-10.9); Hematocrit 42.5 VOL% (35.7-47.0); Hemoglobin 13.5 GM/DL (12.0-16.0); Immature Granulocytes % 0.4 %; Immature Granulocytes Absolute 0.05 #; Lymphocytes # 1.9 10*3/uL (1.4-4.0); Lymphocytes % 15.8 % (21.3-54.2); Mean Corpuscular HGB Conc 31.8 GM/DL (32-36); Mean Corpuscular Volume 86.6 FL (87-102); Mean Platelet Volume 9.8 FL (9.6-12.0); Monocytes # 0.9 10*3/uL (0.11-0.8); Monocytes % 7.3 % (1.7-12.7); Neutrophils % 74.5 % (38.7-73.9); Platelet Count 422 T/CUMM (130-400); Red Blood Count 4.91 MC/CUMM (3.8-5.5); Red Cell Distribution Width 14.6 % (9.3-17.3)
[2022-04-23] MEDS ORDERED: ZALEPLON 5 MG CAPSULE PO PRN (01:01)
[2022-04-23] MEDS ORDERED: guaiFENesin/DM ER 600-30 MG TABLET PO PRN (01:01)
[2022-04-23] MEDS ORDERED: GLUCAGON 1 MG VIAL IM PRN (01:01)
[2022-04-23] MEDS ORDERED: diphenhydrAMINE CAP 25 MG CAPSULE PO PRN (01:01)
[2022-04-23] MEDS ORDERED: hydrALAZINE 20 MG/1 ML VIAL IV PRN (01:01)
[2022-04-23] MEDS ORDERED: ONDANSETRON 4 MG/2 ML VIAL IV PRN (01:01)
[2022-04-23] MEDS ORDERED: DEXTROSE 10% 250 ML BAG IV PRN (01:01)
[2022-04-23] MEDS: NICOTINE 21 MG/24 HR PATCH TRANSDERM PRN (02:32)
[2022-04-23 05:33] LABS: HIV Antigen/Antibody Result Nonreactive (Nonreactive); Hepatitis C Virus Ab Quant > 11.00 Index; Hepatitis C Virus Ab Result Reactive (NonReactive)
[2022-04-23 06:53] LABS: Basophils # 0.1 10*3/uL (0.0-0.2); Basophils % 0.8 % (0.0-0.8); Eosinophils # 0.2 10*3/uL (0.0-0.87); Eosinophils % 2.2 % (0.00-10.9); Hematocrit 42.6 VOL% (35.7-47.0); Hemoglobin 13.5 GM/DL (12.0-16.0); Immature Granulocytes % 0.3 %; Immature Granulocytes Absolute 0.03 #; Lymphocytes # 2.2 10*3/uL (1.4-4.0); Lymphocytes % 21.1 % (21.3-54.2); Mean Corpuscular HGB Conc 31.7 GM/DL (32-36); Mean Corpuscular Volume 86.2 FL (87-102); Mean Platelet Volume 11.9 FL (9.6-12.0); Monocytes # 0.9 10*3/uL (0.11-0.8); Monocytes % 8.5 % (1.7-12.7); Neutrophils % 67.1 % (38.7-73.9); Platelet Count 207 T/CUMM (130-400); Red Blood Count 4.94 MC/CUMM (3.8-5.5); Red Cell Distribution Width 14.6 % (9.3-17.3); White Blood Count 10.3 T/CUMM (4-12)
[2022-04-23 07:13] LABS: Calcium 8.7 MG/DL (8.5-10.1); Osmolality,Calculated 279.4 MOS/KG (273-304)
[2022-04-23] MEDS: ALBUTEROL 2.5 MG/3 ML NEB RESP TX SCH ×4 (07:39→19:05)
[2022-04-23] MEDS: ASPIRIN EC 81 MG TABLET PO SCH (09:56)
[2022-04-23] MEDS: HEPARIN 5,000 UNIT/1 ML VIAL SUBCUT SCH ×2 (09:56→20:53)
[2022-04-23] MEDS: ACETAMINOPHEN 325 MG TABLET PO PRN (09:56)
[2022-04-23] MEDS: METOPROLOL SUCCINATE XL 25 MG TABLET PO SCH (09:56)
[2022-04-23] MEDS: amLODIPine 10 MG TABLET PO SCH (09:56)
[2022-04-23] MEDS: POLYETHYLENE GLYCOL POWDER 17 GM PACK PO PRN (14:56)
[2022-04-23 15:40] LABS: Hepatitis B Core IgM Quant 0.15 Index; Hepatitis B Surface Ag Quant < 0.10 Index; Hepatitis B Surface Ag Result Non-Reactive (NonReactive); Hepatitis C Virus Ab Quant > 11.00 Index; Hepatitis C Virus Ab Result Reactive (NonReactive)
[2022-04-23] MEDS: ATORVASTATIN 40 MG TABLET PO SCH (20:53)
[2022-04-23] MEDS: BISACODYL 10 MG SUPP RECTAL PRN (20:53)
[2022-04-24 05:29] LABS: Albumin 2.7 G/DL (3.4-5.0); Bilirubin,Total 0.5 MG/DL (0.20-1.00); Calcium 8.8 MG/DL (8.5-10.1); Osmolality,Calculated 283.1 MOS/KG (273-304); Potassium 4.1 MMOL/L (3.5-5.1); Total Protein 6.8 G/DL (6.4-8.2)
[2022-04-24 07:09] LABS: Basophils # 0.1 10*3/uL (0.0-0.2); Basophils % 1.1 % (0.0-0.8); Eosinophils # 0.3 10*3/uL (0.0-0.87); Eosinophils % 3.8 % (0.00-10.9); Hematocrit 45.3 VOL% (35.7-47.0); Immature Granulocytes % 0.2 %; Immature Granulocytes Absolute 0.02 #; Lymphocytes # 2.5 10*3/uL (1.4-4.0); Lymphocytes % 30.9 % (21.3-54.2); Mean Corpuscular HGB Conc 29.6 GM/DL (32-36); Mean Platelet Volume 11.2 FL (9.6-12.0); Monocytes # 0.7 10*3/uL (0.11-0.8); Monocytes % 8.4 % (1.7-12.7); Neutrophils % 55.6 % (38.7-73.9); Red Blood Count 4.98 MC/CUMM (3.8-5.5); Red Cell Distribution Width 14.8 % (9.3-17.3); White Blood Count 8.1 T/CUMM (4-12)
[2022-04-24 07:11] LABS: Hemoglobin 13.4 GM/DL (12.0-16.0)
[2022-04-24 07:12] LABS: Platelet Count 268 T/CUMM (130-400)
[2022-04-24] MEDS: ALBUTEROL 2.5 MG/3 ML NEB RESP TX SCH ×4 (07:24→19:35)
[2022-04-24] MEDS: POLYETHYLENE GLYCOL POWDER 17 GM PACK PO PRN (09:05)
[2022-04-24] MEDS: amLODIPine 10 MG TABLET PO SCH (09:06)
[2022-04-24] MEDS: METOPROLOL SUCCINATE XL 25 MG TABLET PO SCH (09:06)
[2022-04-24] MEDS: ASPIRIN EC 81 MG TABLET PO SCH (09:07)
[2022-04-24] MEDS: HEPARIN 5,000 UNIT/1 ML VIAL SUBCUT SCH ×2 (09:07→21:04)
[2022-04-24] MEDS: NICOTINE 21 MG/24 HR PATCH TRANSDERM PRN (09:07)
[2022-04-24] MEDS: ACETAMINOPHEN 325 MG TABLET PO PRN (17:12)
[2022-04-24] MEDS: ATORVASTATIN 40 MG TABLET PO SCH (21:00)
[2022-04-24] MEDS: BISACODYL 10 MG SUPP RECTAL PRN (21:00)
[2022-04-24 22:59] LABS: Barbiturates Screen,Urine Negative (Negative); Benzodiazepines Screen,Urine Negative (Negative); Cannabinoid Screen,Urine Positive (Negative); Opiate Screen,Urine Negative (Negative); Phencyclidine Screen,Urine Negative (Negative)
[2022-04-25] MEDS: ALBUTEROL 2.5 MG/3 ML NEB RESP TX SCH ×4 (00:08→20:20)
[2022-04-25] MEDS: METOPROLOL SUCCINATE XL 25 MG TABLET PO SCH (08:38)
[2022-04-25] MEDS: amLODIPine 10 MG TABLET PO SCH (08:38)
[2022-04-25] MEDS: ASPIRIN EC 81 MG TABLET PO SCH (08:38)
[2022-04-25] MEDS: HEPARIN 5,000 UNIT/1 ML VIAL SUBCUT SCH ×2 (08:40→20:45)
[2022-04-25] MEDS: LORazepam 0.5 MG TABLET PO PRN (19:18)
[2022-04-25] MEDS: ATORVASTATIN 40 MG TABLET PO SCH (20:44)
[2022-04-26] MEDS: ALBUTEROL 2.5 MG/3 ML NEB RESP TX SCH ×4 (01:15→19:07)
[2022-04-26] MEDS: HEPARIN 5,000 UNIT/1 ML VIAL SUBCUT SCH ×2 (08:04→20:13)
[2022-04-26] MEDS: amLODIPine 10 MG TABLET PO SCH (08:04)
[2022-04-26] MEDS: METOPROLOL SUCCINATE XL 25 MG TABLET PO SCH (08:06)
[2022-04-26] MEDS: ASPIRIN EC 81 MG TABLET PO SCH (08:06)
[2022-04-26] MEDS: LORazepam 0.5 MG TABLET PO PRN (15:47)
[2022-04-26] MEDS: ATORVASTATIN 40 MG TABLET PO SCH (20:13)
[2022-04-26] MEDS: MIRTAZAPINE 15 MG TABLET PO SCH (20:13)
[2022-04-27] MEDS: ALBUTEROL 2.5 MG/3 ML NEB RESP TX SCH ×4 (07:35→19:18)
[2022-04-27] MEDS: METOPROLOL SUCCINATE XL 25 MG TABLET PO SCH (09:37)
[2022-04-27] MEDS: amLODIPine 10 MG TABLET PO SCH (09:39)
[2022-04-27] MEDS: ESCITALOPRAM 10 MG TABLET PO SCH (09:40)
[2022-04-27] MEDS: ASPIRIN EC 81 MG TABLET PO SCH (09:41)
[2022-04-27] MEDS: HEPARIN 5,000 UNIT/1 ML VIAL SUBCUT SCH ×2 (09:42→20:56)
[2022-04-27] MEDS: ATORVASTATIN 40 MG TABLET PO SCH (20:58)
[2022-04-27] MEDS: MIRTAZAPINE 15 MG TABLET PO SCH (20:58)
[2022-04-28] MEDS: ALBUTEROL 2.5 MG/3 ML NEB RESP TX SCH ×4 (00:05→19:12)
[2022-04-28] MEDS: ESCITALOPRAM 10 MG TABLET PO SCH (08:51)
[2022-04-28] MEDS: ASPIRIN EC 81 MG TABLET PO SCH (08:51)
[2022-04-28] MEDS: METOPROLOL SUCCINATE XL 25 MG TABLET PO SCH (08:51)
[2022-04-28] MEDS: amLODIPine 10 MG TABLET PO SCH (08:51)
[2022-04-28] MEDS: HEPARIN 5,000 UNIT/1 ML VIAL SUBCUT SCH ×2 (08:52→21:51)
[2022-04-28] MEDS: MIRTAZAPINE 15 MG TABLET PO SCH (21:51)
[2022-04-28] MEDS: ATORVASTATIN 40 MG TABLET PO SCH (21:51)
[2022-04-28] MEDS ORDERED: KETOROLAC 15 MG/1 ML VIAL IV ONE (21:57)
[2022-04-29] MEDS: ALBUTEROL 2.5 MG/3 ML NEB RESP TX SCH ×4 (00:43→19:49)
[2022-04-29] MEDS: amLODIPine 10 MG TABLET PO SCH (09:06)
[2022-04-29] MEDS: ESCITALOPRAM 10 MG TABLET PO SCH (09:07)
[2022-04-29] MEDS: METOPROLOL SUCCINATE XL 25 MG TABLET PO SCH (09:07)
[2022-04-29] MEDS: ASPIRIN EC 81 MG TABLET PO SCH (09:07)
[2022-04-29] MEDS: HEPARIN 5,000 UNIT/1 ML VIAL SUBCUT SCH ×2 (09:08→20:28)
[2022-04-29] MEDS: MIRTAZAPINE 15 MG TABLET PO SCH (20:28)
[2022-04-29] MEDS: ATORVASTATIN 40 MG TABLET PO SCH (20:28)
[2022-04-30] MEDS: ALBUTEROL 2.5 MG/3 ML NEB RESP TX SCH ×4 (00:29→19:10)
[2022-04-30 05:43] LABS: Basophils # 0.1 10*3/uL (0.0-0.2); Basophils % 0.7 % (0.0-0.8); Eosinophils # 0.2 10*3/uL (0.0-0.87); Eosinophils % 2.5 % (0.00-10.9); Hematocrit 41.2 VOL% (35.7-47.0); Hemoglobin 12.5 GM/DL (12.0-16.0); Immature Granulocytes % 0.2 %; Immature Granulocytes Absolute 0.02 #; Lymphocytes # 2.4 10*3/uL (1.4-4.0); Lymphocytes % 27.7 % (21.3-54.2); Mean Corpuscular HGB Conc 30.3 GM/DL (32-36); Mean Corpuscular Volume 90.2 FL (87-102); Mean Platelet Volume 10.5 FL (9.6-12.0); Monocytes # 0.6 10*3/uL (0.11-0.8); Monocytes % 6.4 % (1.7-12.7); Neutrophils % 62.5 % (38.7-73.9); Platelet Count 346 T/CUMM (130-400); Red Blood Count 4.57 MC/CUMM (3.8-5.5); Red Cell Distribution Width 14.8 % (9.3-17.3); White Blood Count 8.6 T/CUMM (4-12)
[2022-04-30 06:15] LABS: Albumin 2.8 G/DL (3.4-5.0); Bilirubin,Total 0.4 MG/DL (0.20-1.00); Calcium 8.9 MG/DL (8.5-10.1); Osmolality,Calculated 290.7 MOS/KG (273-304); Total Protein 6.7 G/DL (6.4-8.2)
[2022-04-30] MEDS: amLODIPine 5 MG TABLET PO SCH (09:06)
[2022-04-30] MEDS: ESCITALOPRAM 10 MG TABLET PO SCH (09:06)
[2022-04-30] MEDS: ASPIRIN EC 81 MG TABLET PO SCH (09:06)
[2022-04-30] MEDS: HEPARIN 5,000 UNIT/1 ML VIAL SUBCUT SCH ×2 (09:06→20:24)
[2022-04-30] MEDS: METOPROLOL SUCCINATE XL 25 MG TABLET PO SCH (10:02)
[2022-04-30] MEDS: ATORVASTATIN 40 MG TABLET PO SCH (20:24)
[2022-04-30] MEDS: MIRTAZAPINE 15 MG TABLET PO SCH (20:24)
[2022-04-30] MEDS: LORazepam 0.5 MG TABLET PO PRN (20:25)
[2022-05-01] MEDS: ALBUTEROL 2.5 MG/3 ML NEB RESP TX SCH ×4 (01:09→19:22)
[2022-05-01] MEDS: ASPIRIN EC 81 MG TABLET PO SCH ×2 (09:37→09:58)
[2022-05-01] MEDS: ESCITALOPRAM 10 MG TABLET PO SCH ×2 (09:37→09:57)
[2022-05-01] MEDS: amLODIPine 5 MG TABLET PO SCH ×2 (09:37→09:57)
[2022-05-01] MEDS: METOPROLOL SUCCINATE XL 25 MG TABLET PO SCH ×2 (09:38→09:57)
[2022-05-01] MEDS: HEPARIN 5,000 UNIT/1 ML VIAL SUBCUT SCH ×3 (09:39→20:00)
[2022-05-01] MEDS: LORazepam 0.5 MG TABLET PO PRN (19:29)
[2022-05-01] MEDS: ATORVASTATIN 40 MG TABLET PO SCH (20:00)
[2022-05-01] MEDS: MIRTAZAPINE 15 MG TABLET PO SCH (20:00)
[2022-05-02] MEDS: ALBUTEROL 2.5 MG/3 ML NEB RESP TX SCH ×2 (00:10→07:55)
[2022-05-02] MEDS: METOPROLOL SUCCINATE XL 25 MG TABLET PO SCH (08:14)
[2022-05-02] MEDS: ASPIRIN EC 81 MG TABLET PO SCH (08:15)
[2022-05-02] MEDS: ESCITALOPRAM 10 MG TABLET PO SCH (08:15)
[2022-05-02] MEDS: amLODIPine 5 MG TABLET PO SCH (08:15)
[2022-05-02] MEDS: HEPARIN 5,000 UNIT/1 ML VIAL SUBCUT SCH (08:16)
[2022-05-02 11:52] VITALS: BP 120/62
== END 2022-05-02 15:21 | disposition swing bed (61) ==
LOC: EDUNIT# → EDBD → N.ED 17:21 → N.EDINP 17:21 → SUATTDRO 04-23 01:01 → N.5E 04-23 01:48
PROVIDERS: ADMIT Internal Medicine; ATTEND Internal Medicine